=== PATIENT | female | born 2000 | race Two or more races ===

== ENCOUNTER 2025-07-19 22:59 | Observation (INO) | payer MEDICAID ==
[~2025-07-19] VITALS: Ht 154.9 cm; Wt 108.0 kg
--- NOTE | 2025-07-20 00:17 | DVH ---
INDICATION: decreased movement TECHNIQUE: Multiple real-time grayscale transabdominal sonographic images along with color and duplex Doppler of the uterus and ovaries were obtained. COMPARISON: None FINDINGS: Single intrauterine gestation. heart rate measures 142 beats per minute. Cephalic presentation . The cervix appears closed measuring 3.4 cm in length. Posterior placenta without evidence of previ a. Single deepest pocket measures 7.3 cm, normal. Possible nuchal cord (images 5-6). IMPRESSION: 1. Intrauterine gestation with cardiac activity in cephalic presentation. 2. Normal appearance of the cervix. 3. Possible nuchal cord, attention on subsequent exams.
[2025-07-20] MEDS ORDERED: PREN1TAB71 PO (00:48)
--- NOTE | 2025-07-20 01:10 | DVHDS2 ---
Physician Discharge Progress N Final Diagnosis: IUP at 30weeks GDMA1 Reactive NST Normal HARMAN Operations or Procedures: Operations or Procedures OB Ultrasound NST Other Interventions Other Interventions S: 25yo G4,[address] for decreased movements, no UCs, no leakage of fluid, vaginal bleeding, AGUILAR, vision changes or epigastric pain O: A&O x3 NAD. Afebrile, VSS Respiration: unlabored heart and lung sounds normal. Abdomen: Gravid, non-tender to palpation Extremities: No edema OB Ultrasound shows MVP of 7.3cm (normal) EFM: FHR baseline 135bpm accelerations present, no deceleration No contractions A: IUP at 30weeks GDMA1 Normal HARMAN Reactive NST P: Continue to follow nutrition and exercise as advised for management of Diabetes Keep all scheduled appointment with OB provider; seek care sooner if needed 3rd trimester emergency S&S FMC, PTL & pre-eclampsia precautions reviewed with pt; advised to seek health care if any symptom including but not limited to any of the above. Condition on Discharge: Good Disposition: Home Discharge Instructions: Diet: Consistent carbohydrate Activity: No Restrictions, As Tolerated Follow Up/Referral: Keep all scheduled appointments with OB Provider; seek care sooner if needed Medications: None Follow Up Care: Discharge Statement: 3rd trimester emergency S&S FMC, PTL & pre-eclampsia precautions reviewed with pt; advised to seek health care if any symptom including but not limited to any of the above. "Patient was advised to return to the ER or call 911 if any headaches, dizziness, shortness of breath, chest pain, abdominal pain, bleeding, fevers, or worsening of medical condition. Patient was counseled about treatment plan, medications, possible side effects, patientverbalized understanding. All questions were answered to the best of my ability. This discharge took greater then 30 minutes in planning, reviewing documentation, counseling the patient, and discussing with other team members." Visit Coding OBGYN Date of Service: Jul 19, 2025 Billing Provider: TRI ELLIS CNM BUSINESS ANALYSIS ANALYST Common Visit Codes: 99937-NVN/OBS SAME DATE (HIGH) BUSINESS ANALYSIS ANALYST Procedure Codes: 83847-71- NON-STRESS TEST TRI ELLIS CNM Jul 20, 2025 01:10
== END 2025-07-20 01:10 | disposition home or self-care (01) ==
LOC: LDRP 22:59
PROVIDERS: ADMIT Obstetrics & Gynecology; ATTEND Obstetrics & Gynecology
DX: O24.419 Gestational diabetes mellitus in pregnancy, unspecified control (principal); Z3A.30 30 weeks gestation of pregnancy; Z98.890 Other specified postprocedural states; Z79.899 Other long term (current) drug therapy
CPT/HCPCS: 59025; 76815; 81002; 82948; 82962; 94760; G0378

== ENCOUNTER 2025-09-23 18:55 | Inpatient (IN) | payer MEDICAID ==
[~2025-09-23] VITALS: Ht 154.9 cm; Wt 108.0 kg
[~2025-09-23 18:55] MED LIST: PREN1TAB71 PO
[2025-09-23] MEDS ORDERED: LIDOCAINE 2%HCL (LOCAL ANESTH.) INJ 20ML MDV IJ PRN (19:00)
[2025-09-23] MEDS: LACTATED RINGER'S 1,000 ML IV SCH (19:00)
[2025-09-23] MEDS ORDERED: ACCU-CHEK COMFORT CURVE STRIP VI PRN (19:00)
[2025-09-23] MEDS ORDERED: NALBUPHINE HCL 10 MG/1ml INJECTION IV PRN (19:00)
[2025-09-23 19:32] LABS: Hematocrit 37.9 % (36.0-46.0); Hemoglobin 13.1 g/dL (12.2-16.2); Mean Corpuscular Hemoglobin 29.2 pg (28.0-32.0); Mean Corpuscular Volume 84.6 fL (80.0-100.0); Nucleated Red Blood Cells % 0.0 %
[2025-09-23 19:49] LABS: INR 0.92 (0.9-1.15); Partial Thromboplastin Time 27.9 SEC (24.5-34.5); Prothrombin Time 9.8 sec (9.3-11.8)
[2025-09-23 19:50] LABS: Alanine Aminotransferase 11 U/L (7-40); Albumin 4.1 g/dL (3.2-4.8); Alkaline Phosphatase 173 U/L (46-116); Anion Gap 11 (5-15); BUN/Creatinine Ratio 17.0 (10.0-20.0); Bilirubin, Total 0.3 mg/dL (0.2-1.0); Blood Urea Nitrogen 8 mg/dL (9-23); Calcium 9.1 mg/dL (8.7-10.4); Carbon Dioxide 20 mmol/L (20-31); Chloride 109 mmol/L (98-107); Glucose 86 mg/dL (74-106); Potassium 4.2 mmol/L (3.5-5.1); Sodium 140 mmol/L (136-145); Total Protein 7.1 g/dL (5.7-8.2)
--- NOTE | 2025-09-23 19:51 | DVH ---
INDICATION: presentation TECHNIQUE: Multiple real-time grayscale transabdominal sonographic images along with color and duplex Doppler of the uterus and ovaries were obtained. COMPARISON: US OBSTERICAL LIMITED on DOS: 07/19/25 FINDINGS: Presentation only: CEPHALIC IMPRESSION: 1. CEPHALIC PRESENTATION
[2025-09-23 21:02] LABS: Amphetamine Screen, Urine Neg (NEGATIVE); Barbiturate Scree,Urine Neg (NEGATIVE); Benzodiazephine Screen, Urine Neg (NEGATIVE); Cannabinoid Screen, Urine Neg (NEGATIVE); Cocaine Screen, Urine Neg (NEGATIVE); Opiate Scree,Urine Neg (NEGATIVE); Phencyclidine Screen, Urine Neg (NEGATIVE)
[2025-09-23 21:03] LABS: Urine Amorphous Crystal MOD /hpf (None Seen); Urine Protein, UAD TRACE (Negative)
--- NOTE | 2025-09-23 22:02 | DVHHP2 ---
OB CC & HPI Date Date of Admission: Sep 23, 2025 Patient Identification: : 4 Para: 2 EDC: Sep 28, 2025 EGA: 39w 2d Chief Complaints: Reason for admission: induction of labor Indication for induction: medical complication Admission Nurse Assessment Rev: Yes History of Present Complaints 25yo G4, 1112 with EDC of 09/28/25, EGA 39w 2d presents to the place for IOL d/t GDMA1. She reports normal movement, no leakage of fluid, no vaginal bleeding, Headache, vision changes or epigastric pain. Past Medical History Cardiac: No pertinent Hx Pulmonary: No pertinent Hx Central Nervous System: No pertinent Hx GI: No pertinent Hx Hemotology/Oncology: No pertinent Hx Hepatobiliary: No pertinent Hx Psychiatric: No pertinent Hx Musculoskeletal: No pertinent Hx Rheumotologic: No pertinent Hx Infectious Disease: No peritnent Hx ENT: No pertinent Hx Renal/: No pertinent Hx Endocrine: No pertinent Hx Dermatology: No pertinent Hx Past Surgical History: No pertinent Hx OB History OB History Care: Good Care Ultrasounds: Normal mid trimester US Obstetrical Complications: Gestational Diabetes Medical Complications: Other (Obesity) Other Concerns: None Allergies: Coded Allergies: NO KNOWN ALLERGIES (Unverified , 07/20/25) Home Meds Reported Medications Vit W/ Ferrous Fumara (PNV PLUS MULTIVI) Plus Tab, 1 TAB PO DAILY, TAB 07/20/25 Current Medications Current Medications Medications (Trade) Dose Ordered Sig/Tiffanie Route PRN Reason Start Time Stop Time Status Last Admin Lactated Ringer's 1,000 ml @ 125 mls/hr Q8H IV 09/23/25 19:00 Nalbuphine HCl (Nubain) 10 mg Q4HP PRN IV MODERATE PAIN (4-6 PAIN SCALE) 09/23/25 19:00 Diagnostic Test (Pha) (Accu-Chek Comfort Curve T) 1 strip Q4HP PRN Blood Sugar LESS THAN 60 09/23/25 19:00 Martin Zaragoza (Fay) 1 pad PRN PRN TOP PERINEAL AREA DISCOMFORT 09/23/25 19:00 Sodium Lauryl Sulfate (Phisoderm) 240 ml PRN PRN TOP PERINEAL AREA DISCOMFORT 09/23/25 19:00 Benzocaine (Dermoplast) 1 applic PRN PRN TOP PERINEAL AREA DISCOMFORT 09/23/25 19:00 Misoprostol (Cytotec) 50 mcg Q4HPRN PRN PO CERVICAL RIPENING 09/23/25 19:00 Lidocaine HCl (Xylocaine) 20 ml ONCE PRN IJ PERINEAL AREA DISCOMFORT 09/23/25 19:00 Family & Social History Family/Social History Past Family/Social History: Non- contributory Blood Type: O+ Rubella: immune RPR/VDRL: Negative GBS Status: Negative HBsAG: Negative Review of Systems Constitutional: No symptom reported Ears, Nose, & Throat: No symptom reported Eyes: No symptom reported Pulmonary/Respiratory: No symptom reported Cardiovascular: No symptom reported Gastrointestinal: No symptom reported Genitourinary: No symptom reported Musculoskeletal: No symptom reported Skin: No symptom reported Psychiatric: No symptom reported Endocrine: No symptom reported Hemotologic/Lymphatic: No symptom reported OB Admission Exam Physical Exam HEENT: TMs Normal, Fontanelles Normal, Nasal Mucosa Normal, Eyes non-injected, Oropharynx Normal, PERRLA, Moist Membranes, EOMI Heart: Rhythm Normal Lungs: Clear Abdomen: Non tender Extremities: Normal Reflexes: Normal Cervical Dilatation: 3cm Effacement: Other (40%) Station: Ballotable Membranes: Intact Heart Rate: 130's Accelerations: Accelerations Present Decelerations: Variable Decelerations Emblem Cutter Variability: Average (6-25) Contractions on Admission: 6-10 Minutes Apart Date/Time Contractions Began: 09/23/25 Duration: 70secs Intensity: Mild OB Plan Plan Admitting Diagnosis: IUP at 39w 2d GDMA1 Category II FHR tracing IOL Plan: Induction Induction Methd: Misoprostol protocol Other Plan: IOL process, cervical ripening with medication, cervical ripening balloon, oxytocin etc including the risks, benefits and all her options including primary Section discussed with the patient & partner. The patient wishes to proceed with trial of vaginal delivery. Informed consent obtained. Risk of pain, bleeding, infection, discussed with the patient and partner Consent for possible blood transfusion obtained. All questions answered. Admit to Place for scheduled IOL Routine L&D admission orders Membrane sweep - done Misoprostol per protocol EFM per policy & protocol Intrauterine resuscitation PRN Labor analgesia PRN Encourage frequent position change and ambulation to facilitate labor & descent Supportive Care Anticipate Visit Coding OBGYN Date of Service: Sep 23, 2025 Billing Provider: TRI ELLIS CNM ELECTROLESS PLATER Common Visit Codes: [id number] INP/OBS CARE (HIGH) ELECTROLESS PLATER Procedure Codes: 39827-00- NON-STRESS TEST TRI ELLIS CNM Sep 23, 2025 22:02
[2025-09-23] MEDS: LIDOCAINE HCL 2 %PF INJ 10ML AMP IJ ONE (23:45)
[2025-09-23] MEDS: NALOXONE HCL 0.4 MG/ML VIAL IV ONE (23:45)
[2025-09-23] MEDS: LACTATED RINGER'S 500 ML IV ONE (23:45)
[2025-09-24] MEDS ORDERED: ONDANSETRON HCL 4 MG/2 ML VIAL IV PRN
--- NOTE | 2025-09-24 00:06 | DVHPN2 ---
CNM Labor Progress Note Date and Time Seen Date Seen: Sep 23, 2025 Time Seen: 23:55 Subjective Patient reports: Other (contractions are stronger) Objective Vital Signs See flow sheet and Monitoring Method Monitoring Method: External Heart Rate Heart Rate Baseline: 145 Heart Rate Variability: Moderate Presence of FHR Accelerations: Yes Presence of FHR Decelerations: Yes Heart Rate Type of Decel: Early Deceleraions Changes in Trends of Patterns: No Are all 5 Components of the FH: Yes Contractions Contractions Frequency: Other (Q2-4min) Duration of Contraction: 80 Contractions Intensity: Moderate Contractions Resting Tone: Relaxed Membranes Membranes: Intact Vaginal Exam Vag Exam Deferred: No Vaginal Exam Dilation: 4 Vaginal Exam Effacement: 70 Vaginal Exam Station: -2 Vaginal Exam Presentation: VTX Vaginal Exam Show: Moderate Medications Medications - Pitocin: No Medication - Epidural: No Medication - Other Misoprostol Lab Results Lab Results Vital Signs Date Time Temp Pulse Resp B/P (MAP) Pulse Ox O2 Delivery O2 Flow Rate FiO2 09/24/25 07:00 97.9 103 17 115/69 (84) 97 97.9 I & O 09/24/25 07:00 Output Total 700 ml Balance -700 ml Output Urine Total 700 ml Current Medications Medications (Trade) Dose Ordered Sig/Tiffanie Start Time Stop Time Status Last Admin Dose Admin Lactated Ringer's 1,000 ml @ 125 mls/hr Q8H 09/23/25 19:00 Nalbuphine HCl (Nubain) 10 mg Q4HP PRN 09/23/25 19:00 Diagnostic Test (Pha) (Accu-Chek Comfort Curve T) 1 strip Q4HP PRN 09/23/25 19:00 Martin Zaragoza (Tucks) 1 pad PRN PRN 09/23/25 19:00 09/24/25 00:29 1 PAD Sodium Lauryl Sulfate (Phisoderm) 240 ml PRN PRN 09/23/25 19:00 09/24/25 00:29 240 ML Benzocaine (Dermoplast) 1 applic PRN PRN 09/23/25 19:00 09/24/25 00:29 1 APPLIC Misoprostol (Cytotec) 50 mcg Q4HPRN PRN 09/23/25 19:00 09/23/25 22:01 50 MCG Lidocaine HCl (Xylocaine) 20 ml ONCE PRN 09/23/25 19:00 09/23/25 23:56 DC Oxytocin 500 ml @ 999 mls/hr Q31M ONCE 09/23/25 21:00 09/23/25 21:30 DC 09/24/25 01:50 999 MLS/HR Oxytocin 500 ml @ 125 mls/hr Q4H ONCE 09/23/25 21:30 09/24/25 01:29 DC 09/24/25 01:51 125 MLS/HR Naloxone HCl (Narcan) 0.2 mg PRN ONCE 09/23/25 23:45 09/23/25 23:49 DC Ephedrine Sulfate (ePHEDrine SULFATE) 10 mg PRN ONCE 09/23/25 23:45 09/23/25 23:49 DC Fentanyl Citrate 100 mcg ONCE ONCE 09/23/25 23:45 09/23/25 23:49 DC 09/24/25 00:32 100 MCG Lidocaine HCl (Xylocaine-Pf 2% Injection) 10 ml ONCE ONCE 09/23/25 23:45 09/23/25 23:49 DC Lactated Ringer's 500 ml @ 500 mls/hr Q1H ONCE 09/23/25 23:45 09/24/25 00:44 DC Lidocaine HCl (Xylocaine) 40 ml ONCE PRN 09/24/25 00:00 09/24/25 01:51 20 ML Ondansetron HCl (Zofran) 4 mg Q4HPRN PRN 09/24/25 00:00 Ibuprofen (Motrin Tablet) 600 mg Q6HP PRN 09/24/25 04:30 Acetaminophen (Tylenol Tablet) 650 mg Q4HP PRN 09/24/25 04:30 Ondansetron HCl (Zofran Po) 4 mg Q4HPRN PRN 09/24/25 04:30 Docusate Sodium (Colace Capsule) 200 mg HS 09/24/25 22:00 Laboratory Tests Test 09/24/25 00:56 09/23/25 19:14 09/23/25 19:11 Range/Units POC Glucose 108 H 70-106 mg/dl White Blood Count 10.4 4.4-10.8 10^3/uL Red Blood Count 4.49 4.0-5.20 10^6/uL Hemoglobin 13.1 12.2-16.2 g/dL Hematocrit 37.9 36.0-46.0 % Mean Corpuscular Volume 84.6 80.0-100.0 fL Mean Corpuscular Hemoglobin 29.2 28.0-32.0 pg Mean Corpuscular Hemoglobin Concent 34.6 32.0-36.0 g/dL Red Cell Distribution Width 14.8 H 11.8-14.3 % Platelet Count 320 140-450 10^3/uL Mean Platelet Volume 9.0 6.9-10.8 fL Neutrophils (%) (Auto) 72.8 37.0-80.0 % Lymphocytes (%) (Auto) 21.2 10.0-50.0 % Monocytes (%) (Auto) 5.4 0.0-12.0 % Eosinophils (%) (Auto) 0.3 0.0-7.0 % Basophils (%) (Auto) 0.3 0.0-2.0 % Neutrophils # (Auto) 7.6 1.6-8.6 10 ^3/uL Lymphocytes # (Auto) 2.2 0.4-5.4 10 ^3/uL Monocytes # (Auto) 0.6 0-1.3 10 ^3/uL Eosinophils # (Auto) 0 0-0.8 10 ^3/uL Basophils # (Auto) 0 0-0.2 10 ^3/uL Nucleated Red Blood Cells 0.0 % Prothrombin Time 9.8 9.3-11.8 sec Prothrombin Time INR 0.92 0.9-1.15 Activated Partial Thromboplast Time 27.9 24.5-34.5 SEC Sodium Level 140 136-145 mmol/L Potassium Level 4.2 3.5-5.1 mmol/L Chloride Level 109 H 98-107 mmol/L Carbon Dioxide Level 20 20-31 mmol/L Anion Gap 11 5-15 Blood Urea Nitrogen 8 L 9-23 mg/dL Creatinine 0.47 L 0.550-1.02 mg/dL Glomerular Filtration Rate Calc 135 >90 mL/min BUN/Creatinine Ratio 17.0 10.0-20.0 Serum Glucose 86 74-106 mg/dL Calcium Level 9.1 8.7-10.4 mg/dL Total Bilirubin 0.3 0.2-1.0 mg/dL Aspartate Amino Transferase (AST) 12 L 13-40 U/L Alanine Aminotransferase (ALT) 11 7-40 U/L Alkaline Phosphatase 173 H 46-116 U/L Total Protein 7.1 5.7-8.2 g/dL Albumin 4.1 3.2-4.8 g/dL Treponema pallidum Antibody Non-reactive Negative Hepatitis B Surface Antigen Negative Negative Hepatitis C Antibody Negative Negative HIV (1&2) Antibody Negative Negative Rubella Antibody Positive Urine Color Light-orange Yellow Urine Clarity Ex.turbid Clear Urine pH 5.5 5.0-9.0 Urine Specific [place] 1.037 H 1.001-1.035 Urine Protein Trace H Negative Urine Ketones Trace Negative Urine Blood 1+ H Negative /uL Urine Nitrite Negative Negative Urine Bilirubin Negative Negative Urine Urobilinogen Normal Negative mg/dL Urine Leukocyte Esterase Negative Negative /uL Urine RBC 2 0 - 4 /hpf Urine Microscopic WBC 1 0-5 /HPF Urine Squamous Epithelial Cells Few <5 /hpf Urine Amorphous Crystals Mod None Seen /hpf Urine Bacteria None seen None Seen /hpf Urine Mucus Few None Seen Urine Glucose Normal Normal mg/dL Urine Opiates Screen Neg NEGATIVE Urine Fentanyl Screen Neg NEGATIVE Urine Barbiturates Screen Neg NEGATIVE Urine Phencyclidine Screen Neg NEGATIVE Urine Amphetamines Screen Neg NEGATIVE Urine Benzodiazepines Screen Neg NEGATIVE Urine Cocaine Screen Neg NEGATIVE Urine Cannabinoids Screen Neg NEGATIVE Chlamydia trachomatis (SYLVAIN) Pending Neisseria gonorrhoeae (SYLVAIN) Pending Assessment Assessment <> IUP at 39w 2d <> GDMA1 <> Labor <> Cat ! FHR Tracing Plan Plan <> Continue with current plan <> Anticipate <> Supportive care <> Anticipate Plan discussed with: Patient, Spouse Visit Coding OBGYN Date of Service: Sep 23, 2025 Billing Provider: TRI ELLIS CNM WATER MAIN INSPECTOR Common Visit Codes: [id number] INP/OBS CARE(HIGH) WATER MAIN INSPECTOR Procedure Codes: 65281-54- NON-STRESS TEST TRI ELLIS CNM Sep 24, 2025 00:06
[2025-09-24] MEDS: DERMOPLAST 60ML BOTTLE TOP PRN (00:29)
[2025-09-24] MEDS: PHISODERM TOP SOLN 240ML BTL TOP PRN (00:29)
[2025-09-24] MEDS: WITCH HAZEL-GLYCERIN PAD TOP PRN (00:29)
[2025-09-24] MEDS: fentaNYL CITRATE 100 MCG/2 ML VL IV ONE (00:32)
[2025-09-24] MEDS: ROPIVACAINE HCL 100 ML ONE (00:33)
--- NOTE | 2025-09-24 00:38 | EPIDURAL ---
Anesthesia Procedural Note - Epidural Informed consent obtained?: Yes Medication Administered: Fentanyl 100 mcg Sterile prept drape: Yes Spinal level of insertion: L4-L5 Test dose of lidocaine & Epine: Negative Infusion started: Yes Start time: 00:00 End time: 00:30 Procedure description Procedure description: Called for labor analgesia. Chart reviewed, history taken and patient examined. Patient is here for induction of labor for GDM. Informed consent for CSE obtained. Sitting position, sterile prep and drape (BP 138/88 HR 123 spO2 98). Time out done. L4-5 space infiltrated with 1% lido. Epidural needle placed with ANGIE at 9cm. 25G spinal needle +clear CSF (BP 140/80 HR 130 spO2 98). 15mcg fentanyl given IT. Epidural catheter secured at 14cm. Aspiration and test dose (3cc 1.5% lido with epi) negative (BP 138/80 HR 118 spO2 99). 85mcg fentanyl given via epidural. Patient reports good pain relief. 0.2% ropivacaine infusion started (BP 130/78 HR 111 spO2 99). Will follow as needed. RIKI WHITTEN MD Sep 24, 2025 00:38
[2025-09-24] MEDS: LACT. RINGERS/OXYTOCIN 20UNITS 500 ML IV ONE ×2 (01:50→01:51)
[2025-09-24] MEDS: LIDOCAINE 2%HCL (LOCAL ANESTH.) INJ 20ML MDV IJ PRN (01:51)
--- NOTE | 2025-09-24 02:14 | LDN2 ---
Labor and Delivery Note Date 09/24/25 Age 25 4 Para 3 AB 1 EDC 09/28/25 EGA 39w 3d Diagnosis IUP at 39w 3d GDMA1 Vaginal Delivery: VTX Vacuum Assisted: No Placenta: Spontaneous Sex: Female Apgars 8 @ one minute & 9 @ five minutes of life Nuchal Cord Transected: No Amniotic Fluid: Clear Anesthesia Epidural Episiotomy: No Extension: Yes Repaired with 3-0 Vicryl (periurethral laceration) EBL 50mL Labs Laboratory Tests 09/23/25 19:14: Hepatitis B Surface Antigen Negative, HIV (1&2) Antibody Negative, Rubella Antibody Positive Blood Bank 09/23/25 19:14: Blood Type O POSITIVE Complications None Conditions Mother and baby stable Oiler Helper Somu Comments/Significant Med Nallely At 01:07, 25yo, now delivered a viable Female by w/ score 8 at one & 9 @ five minutes of life. RUIZ position placed skin to skin on pts chest. Cord clamped and cut after pulsation ceased. Cord blood sent. Intact 3-vessel cord placenta delivered spontaneously, Valeria. Pitocin IV bolus started. Placenta sent to pathology. Patient had labor epidural anesthesia. Periurethral laceration noted and was repaired with 3-0 Vicryl suture. Cervix/vagina inspected via SSE. Cervix intact. Rectal mucosa and sphincter intact. Fundus at U, firm, midline, and light lochia. QBL 50ml. VSS. Count correct x2. Patient to care and baby to couplet care, both stable. Visit Coding OBGYN Date of Service: Sep 24, 2025 Billing Provider: TRI ELLIS CNM R D INTERNSHIP Common Visit Codes: [id number] INP/OBS CARE(HIGH) [employer] D INTERNSHIP Procedure Codes: 22227-74- NON-STRESS TEST, 50811-HLT DELIVERY ONLY TRI ELLIS CNM Sep 24, 2025 02:14
[2025-09-24] MEDS ORDERED: ACETAMINOPHEN 325 MG TAB PO PRN (04:30)
[2025-09-24] MEDS ORDERED: ONDANSETRON ODT 4 MG TAB PO PRN (04:30)
[2025-09-24] MEDS ORDERED: IBUPROFEN 600 MG TAB PO PRN (04:30)
--- NOTE | 2025-09-24 06:41 | DVHPN2 ---
CNM Labor Progress Note Date and Time Seen Date Seen: Sep 24, 2025 Time Seen: 00:42 Subjective Patient reports: No new complaints Objective Vital Signs VSS Monitoring Method Monitoring Method: External Heart Rate Heart Rate Variability: Moderate Presence of FHR Accelerations: Yes Presence of FHR Decelerations: No Changes in Trends of Patterns: No Are all 5 Components of the FH: Yes Contractions Contractions Frequency: Other Duration of Contraction: 60 Contractions Intensity: Moderate Contractions Resting Tone: Relaxed Membranes Membranes: Intact Vaginal Exam Vag Exam Deferred: No Vaginal Exam Dilation: 7 Vaginal Exam Effacement: 80 Vaginal Exam Station: -2 Vaginal Exam Presentation: VTX Vaginal Exam Show: Moderate Medications Medications - Pitocin: No Medication - Epidural: Yes Lab Results Lab Results Vital Signs Date Time Temp Pulse Resp B/P (MAP) Pulse Ox O2 Delivery O2 Flow Rate FiO2 09/24/25 07:00 97.9 103 17 115/69 (84) 97 97.9 I & O 09/24/25 07:00 Output Total 700 ml Balance -700 ml Output Urine Total 700 ml Current Medications Medications (Trade) Dose Ordered Sig/Tiffanie Start Time Stop Time Status Last Admin Dose Admin Lactated Ringer's 1,000 ml @ 125 mls/hr Q8H 09/23/25 19:00 Nalbuphine HCl (Nubain) 10 mg Q4HP PRN 09/23/25 19:00 Diagnostic Test (Pha) (Accu-Chek Comfort Curve T) 1 strip Q4HP PRN 09/23/25 19:00 Witch Mila (Tucks) 1 pad PRN PRN 09/23/25 19:00 09/24/25 00:29 1 PAD Sodium Lauryl Sulfate (Phisoderm) 240 ml PRN PRN 09/23/25 19:00 09/24/25 00:29 240 ML Benzocaine (Dermoplast) 1 applic PRN PRN 09/23/25 19:00 09/24/25 00:29 1 APPLIC Misoprostol (Cytotec) 50 mcg Q4HPRN PRN 09/23/25 19:00 09/23/25 22:01 50 MCG Lidocaine HCl (Xylocaine) 20 ml ONCE PRN 09/23/25 19:00 09/23/25 23:56 DC Oxytocin 500 ml @ 999 mls/hr Q31M ONCE 09/23/25 21:00 09/23/25 21:30 DC 09/24/25 01:50 999 MLS/HR Oxytocin 500 ml @ 125 mls/hr Q4H ONCE 09/23/25 21:30 09/24/25 01:29 DC 09/24/25 01:51 125 MLS/HR Naloxone HCl (Narcan) 0.2 mg PRN ONCE 09/23/25 23:45 09/23/25 23:49 DC Ephedrine Sulfate (ePHEDrine SULFATE) 10 mg PRN ONCE 09/23/25 23:45 09/23/25 23:49 DC Fentanyl Citrate 100 mcg ONCE ONCE 09/23/25 23:45 09/23/25 23:49 DC 09/24/25 00:32 100 MCG Lidocaine HCl (Xylocaine-Pf 2% Injection) 10 ml ONCE ONCE 09/23/25 23:45 09/23/25 23:49 DC Lactated Ringer's 500 ml @ 500 mls/hr Q1H ONCE 09/23/25 23:45 09/24/25 00:44 DC Lidocaine HCl (Xylocaine) 40 ml ONCE PRN 09/24/25 00:00 09/24/25 01:51 20 ML Ondansetron HCl (Zofran) 4 mg Q4HPRN PRN 09/24/25 00:00 Ibuprofen (Motrin Tablet) 600 mg Q6HP PRN 09/24/25 04:30 Acetaminophen (Tylenol Tablet) 650 mg Q4HP PRN 09/24/25 04:30 Ondansetron HCl (Zofran Po) 4 mg Q4HPRN PRN 09/24/25 04:30 Docusate Sodium (Colace Capsule) 200 mg HS 09/24/25 22:00 Laboratory Tests Test 09/24/25 00:56 09/23/25 19:14 09/23/25 19:11 Range/Units POC Glucose 108 H 70-106 mg/dl White Blood Count 10.4 4.4-10.8 10^3/uL Red Blood Count 4.49 4.0-5.20 10^6/uL Hemoglobin 13.1 12.2-16.2 g/dL Hematocrit 37.9 36.0-46.0 % Mean Corpuscular Volume 84.6 80.0-100.0 fL Mean Corpuscular Hemoglobin 29.2 28.0-32.0 pg Mean Corpuscular Hemoglobin Concent 34.6 32.0-36.0 g/dL Red Cell Distribution Width 14.8 H 11.8-14.3 % Platelet Count 320 140-450 10^3/uL Mean Platelet Volume 9.0 6.9-10.8 fL Neutrophils (%) (Auto) 72.8 37.0-80.0 % Lymphocytes (%) (Auto) 21.2 10.0-50.0 % Monocytes (%) (Auto) 5.4 0.0-12.0 % Eosinophils (%) (Auto) 0.3 0.0-7.0 % Basophils (%) (Auto) 0.3 0.0-2.0 % Neutrophils # (Auto) 7.6 1.6-8.6 10 ^3/uL Lymphocytes # (Auto) 2.2 0.4-5.4 10 ^3/uL Monocytes # (Auto) 0.6 0-1.3 10 ^3/uL Eosinophils # (Auto) 0 0-0.8 10 ^3/uL Basophils # (Auto) 0 0-0.2 10 ^3/uL Nucleated Red Blood Cells 0.0 % Prothrombin Time 9.8 9.3-11.8 sec Prothrombin Time INR 0.92 0.9-1.15 Activated Partial Thromboplast Time 27.9 24.5-34.5 SEC Sodium Level 140 136-145 mmol/L Potassium Level 4.2 3.5-5.1 mmol/L Chloride Level 109 H 98-107 mmol/L Carbon Dioxide Level 20 20-31 mmol/L Anion Gap 11 5-15 Blood Urea Nitrogen 8 L 9-23 mg/dL Creatinine 0.47 L 0.550-1.02 mg/dL Glomerular Filtration Rate Calc 135 >90 mL/min BUN/Creatinine Ratio 17.0 10.0-20.0 Serum Glucose 86 74-106 mg/dL Calcium Level 9.1 8.7-10.4 mg/dL Total Bilirubin 0.3 0.2-1.0 mg/dL Aspartate Amino Transferase (AST) 12 L 13-40 U/L Alanine Aminotransferase (ALT) 11 7-40 U/L Alkaline Phosphatase 173 H 46-116 U/L Total Protein 7.1 5.7-8.2 g/dL Albumin 4.1 3.2-4.8 g/dL Treponema pallidum Antibody Non-reactive Negative Hepatitis B Surface Antigen Negative Negative Hepatitis C Antibody Negative Negative HIV (1&2) Antibody Negative Negative Rubella Antibody Positive Urine Color Light-orange Yellow Urine Clarity Ex.turbid Clear Urine pH 5.5 5.0-9.0 Urine Specific Man 1.037 H 1.001-1.035 Urine Protein Trace H Negative Urine Ketones Trace Negative Urine Blood 1+ H Negative /uL Urine Nitrite Negative Negative Urine Bilirubin Negative Negative Urine Urobilinogen Normal Negative mg/dL Urine Leukocyte Esterase Negative Negative /uL Urine RBC 2 0 - 4 /hpf Urine Microscopic WBC 1 0-5 /HPF Urine Squamous Epithelial Cells Few <5 /hpf Urine Amorphous Crystals Mod None Seen /hpf Urine Bacteria None seen None Seen /hpf Urine Mucus Few None Seen Urine Glucose Normal Normal mg/dL Urine Opiates Screen Neg NEGATIVE Urine Fentanyl Screen Neg NEGATIVE Urine Barbiturates Screen Neg NEGATIVE Urine Phencyclidine Screen Neg NEGATIVE Urine Amphetamines Screen Neg NEGATIVE Urine Benzodiazepines Screen Neg NEGATIVE Urine Cocaine Screen Neg NEGATIVE Urine Cannabinoids Screen Neg NEGATIVE Chlamydia trachomatis (SYLVAIN) Pending Neisseria gonorrhoeae (SYLVAIN) Pending Assessment Assessment IUP @39w 3d GDMA1 IOL for above Obesity Category I FHR tracing Plan Plan AROM - done; clear fluid Continue EFM Intrauterine resuscitation PRN Frequent position change to facilitate labor and descent Supportive care Anticipate Plan discussed with: Patient, Spouse Visit Coding OBGYN Date of Service: Sep 24, 2025 Billing Provider: TRI ELLIS CNM MECHANICAL TECHNOLOGIST Common Visit Codes: [id number] INP/OBS CARE(HIGH) MECHANICAL TECHNOLOGIST Procedure Codes: 07991-18- NON-STRESS TEST TRI ELLIS CNM Sep 24, 2025 06:41
[2025-09-24 07:00] VITALS: BP 115/69; PULSE 103; RESP 17; TEMP 97.9; O2SAT 97
[2025-09-24] MEDS ORDERED: TRANEXAMIC ACID 1,000 mg/10ml INJ VIAL IV ONE (09:03)
[2025-09-24 11:00] VITALS: BP 137/82; PULSE 96; RESP 16; TEMP 97.8; O2SAT 98
[2025-09-24 15:14] VITALS: BP 125/82; PULSE 103; RESP 17; TEMP 98.1; O2SAT 97
[2025-09-24 19:08] VITALS: BP 124/81; PULSE 86; RESP 17; TEMP 98; O2SAT 98
[2025-09-24] MEDS: DOCUSATE SOD 100 MG CAP PO SCH (22:00)
[2025-09-24 23:20] VITALS: BP 125/81; PULSE 88; RESP 17; TEMP 97.7; O2SAT 97
[2025-09-25] MEDS ORDERED: IBU600T PO (01:10)
[2025-09-25] MEDS ORDERED: DOCU-94 PO (01:10)
[2025-09-25 02:50] VITALS: BP 131/83; PULSE 96; RESP 18; TEMP 98.1; O2SAT 98
[2025-09-25 06:53] VITALS: BP 113/70; PULSE 86; RESP 16; TEMP 97.7; O2SAT 98
[2025-09-25 11:30] VITALS: BP 114/75; PULSE 91; RESP 17; TEMP 97.7; O2SAT 97
--- NOTE | 2025-09-25 11:32 | DVHPN2 ---
Progress Note Date Seen: Sep 25, 2025 Subjective Ariana is sitting up in bed, watching a show on her laptop, and bottle feeding her baby girl upon entry to room. SUBJECTIVE -Lochia minimal -Tolerating regular diet well. -Pain relieved with oral medication PRN. Patient not feeling much pain at all -Ambulating and voiding well w/o feeling lightheaded or dizzy. -Passing flatus but no BM yet -Bottle and -Desires and requests to be discharged home today (09/25) vital signs Vital Sign Date Time Temp Pulse Resp B/P (MAP) Pulse Ox O2 Delivery O2 Flow Rate FiO2 09/24/25 23:20 97.7 88 17 125/81 (96) 97 97.7 Total Intake and Output 09/24/25 09/24/25 09/25/25 15:00 23:00 07:00 Output Total 500 ml 900 ml Balance -500 ml -900 ml medications Current Medications Medications Dose Ordered Sig/Tiffanie Route Start Time Stop Time Status Last Admin Dose Admin Lactated Ringer's 1,000 ml @ 125 mls/hr Q8H IV 09/23/25 19:00 Nalbuphine HCl 10 mg Q4HP PRN IV 09/23/25 19:00 Diagnostic Test (Pha) 1 strip Q4HP PRN 09/23/25 19:00 Martin Zaragoza 1 pad PRN PRN TOP 09/23/25 19:00 09/24/25 00:29 1 PAD Sodium Lauryl Sulfate 240 ml PRN PRN TOP 09/23/25 19:00 09/24/25 00:29 240 ML Benzocaine 1 applic PRN PRN TOP 09/23/25 19:00 09/24/25 00:29 1 APPLIC Misoprostol 50 mcg Q4HPRN PRN PO 09/23/25 19:00 09/23/25 22:01 50 MCG Lidocaine HCl 40 ml ONCE PRN IJ 09/24/25 00:00 09/24/25 01:51 20 ML Ondansetron HCl 4 mg Q4HPRN PRN IV 09/24/25 00:00 Ibuprofen 600 mg Q6HP PRN PO 09/24/25 04:30 Acetaminophen 650 mg Q4HP PRN PO 09/24/25 04:30 Ondansetron HCl 4 mg Q4HPRN PRN PO 09/24/25 04:30 Docusate Sodium 200 mg HS PO 09/24/25 22:00 laboratory and microbiology Laboratory Tests 09/23/25 19:14 Test 09/23/25 19:14 Range/Units Serum Glucose 86 74-106 mg/dL Objective OBJECTIVE -A&O x4. No apparent distress. Affect appropriate -Afebrile, VSS -Chest: heart and lung sounds normal. -Breasts: Nipples intact w/o cracks or soreness -Abdomen: normal BS, soft, non-tender, no rebound or guarding, fundus firm @ U- 1, lochia minimal -Perineum: deferred -Extremities: no edema or tenderness Problems(with codes): (1) (normal spontaneous vaginal delivery) Assessment/Plan ASSESSMENT -25 yo now ppd #1 s/p doing well. -Blood Type: O+ -Combo feeding -Rubella Immune -GDMA1 PLAN -Continue pain management with oral medications as previously ordered -Increase fluid intake and fiber in diet to promote regular bowel movements, Laxative PRN -Encouraged patient to continue taking vitamin and iron -Educated patient on self care and warning signs of PPH, PPD, and pre-eclampsia. Answered all pt questions and concerns -Continue routine care and anticipate discharge today. Plan discussed with: Patient Visit Coding OBGYN Date of Service: Sep 25, 2025 Billing Provider: ANDREA MACEDO CNM [employer] Common Visit Codes: [id number] INP/OBS CARE(MOD) ANDREA MACEDO CNM Sep 25, 2025 01:04
--- NOTE | 2025-09-25 11:32 | DVHDS2 ---
Obstetrics Discharge Summary Obstetrics Discharge Summary Date of Admission: Sep 23, 2025 Date of Discharge: Sep 25, 2025 Reason For Admission: Induction of Labor (for GDMA1) Intrapartum Procedures: Spontaneous vaginal deliv (Patient was admitted for IOL at 39w2d. Given miso x1, AROM, and pitocin. Got epidural anesthesia and delivered without complication. PP course without complication) Operative Complicat: Laceration (periurethral) Discharge Diagnosis: Term -Delivered Discharge Information: Activity (Unrestricted. Advance as tolerated. Balance activities with rest periods. No heavy lifting, pushing or straining. Pelvic rest x 6 weeks), Diet (Routine regular diet rich in fiber, protein, iron and vitamin C with adequate fluid intake.), Medications (Ibuprofen 600mg every 6 hours as needed for pain. Colace 100mg twice a day as needed to keep bowel movements soft and prevent constipation. Continue Vitamin and iron), Instructions (Routine), Discharge to (Home), Accompanied by (partner), Discarge date (09/25/25) Discharge Care Plan Instructions - self care instructions given - emergency signs and symptoms including but not limited to pre-eclampsia precautions and signs of infection, PPH & of PPD reviewed with patient. -Follow up with OB Provider in 2 weeks and again at 6 weeks Visit Coding OBGYN Date of Service: Sep 25, 2025 Billing Provider: ANDREA MACEDO CNM [employer] Common Visit Codes: [id number]/[id number] DISCH DAY <30MIN ANDREA MACEDO CNM Sep 25, 2025 01:09
[2025-09-25 12:20] VITALS: BP 114/75; PULSE 91; RESP 17; TEMP 97.7; O2SAT 97
[2025-09-26 05:07] LABS: Chlamydia Trachomatis, NAA Negative (Negative); Neisseria gonorrhoeae, NAA Negative (Negative)
== END 2025-09-25 12:20 | disposition home or self-care (01) | DRG 560 ==
LOC: LDRP 18:55
PROVIDERS: ADMIT Obstetrics & Gynecology; ATTEND Obstetrics & Gynecology
PROC: 10E0XZZ Delivery of Products of Conception, External Approach (ICD-10-PCS; principal; 2025-09-24)
PROC: 3E0DXGC Introduction of Other Therapeutic Substance into Mouth and Pharynx, External Approach (ICD-10-PCS; 2025-09-24)
PROC: 0UQMXZZ Repair Vulva, External Approach (ICD-10-PCS; 2025-09-24)
PROC: 3E0R3BZ Introduction of Anesthetic Agent into Spinal Canal, Percutaneous Approach (ICD-10-PCS; 2025-09-24)
PROC: 00HU33Z Insertion of Infusion Device into Spinal Canal, Percutaneous Approach (ICD-10-PCS; 2025-09-24)
DX: O24.420 Gestational diabetes mellitus in childbirth, diet controlled (principal); Z37.0 Single live birth; O71.82 Other specified trauma to perineum and vulva; O99.214 Obesity complicating childbirth; O76 Abnormality in fetal heart rate and rhythm complicating labor and delivery; Z3A.39 39 weeks gestation of pregnancy
CPT/HCPCS: 36415; 59025; 59409; 76815; 80053; 80307; 81001; 81002; 82948; 82962; 85025; 85610; 85730; 86703; 86762; 86780; 86803; 86850; 86900; 86901; 87340; 94760; 94762; 96360; 96361; 96365; 96366; G0378; J2405; J2590